=== PATIENT | female | born 1995 | race Caucasian/White ===

== ENCOUNTER 2023-05-30 16:59 | Inpatient (IN) | payer OTHER ==
[~2023-05-30] VITALS: Ht 175.3 cm; Wt 103.9 kg
[2023-05-30 17:07] VITALS: BP_SYST 144; PULSE 108; RESP 20; TEMP 98.3; O2SAT 98
[2023-05-30 18:25] LABS: MEAN CORPUSCULAR HEMOGLOBIN 22 pg (27-31); MEAN CORPUSCULAR HGB CONC 32 % (32-36); MEAN CORPUSCULAR VOLUME 70 fL (79.0-98.0); PLATELET COUNT (AUTO) 159 K/uL (130-430); RED BLOOD CELL COUNT(AUTO) 3.13 MIL/uL (4.2-6.2); RED CELL DISTRIBUTION WIDTH 20.1 % (9.0-15.0)
[2023-05-30 18:27] LABS: ALBUMIN 2.3 g/dL (3.4-4.8); CALCIUM 7.9 mg/dL (8.4-11.0); CREATININE 1.09 mg/dL (0.55-1.30); POTASSIUM 3.9 mmol/L (3.5-5.1); TOTAL BILIRUBIN 0.6 mg/dL (0.0-1.0); TOTAL PROTEIN, SERUM 7.6 g/dL (6.4-8.3)
[2023-05-30 18:31] LABS: BILIRUBIN,URINE 2+ (NEGATIVE); BLOOD, URINE 1+ (NEGATIVE); CLARITY/URINE CLOUDY (CLEAR); COLOR,URINE YELLOW (YELLOW); GLUCOSE,URINE NEGATIVE (NEGATIVE); KETONES,URINE TRACE (NEGATIVE); LEUKOCYTE ESTERASE ,URINE TRACE (NEGATIVE); NITRITE, URINE NEGATIVE (NEGATIVE); PH,URINE 6.5 (5.0-8.0); PROTEIN URINE 2+ (NEGATIVE); UROBILINOGEN,URINE 0.2 (0.2-1.0)
[2023-05-30 18:37] LABS: WHITE BLOOD COUNT (AUTO) 1.6 K/uL (4.8-10.8)
[2023-05-30 18:38] LABS: HEMATOCRIT 21.7 % (36-48); HEMOGLOBIN 6.9 g/dL (12.0-16.0)
[2023-05-30 19:18] LABS: BACTERIA,URINE MODERATE /HPF (None Seen); RBC,URINE 0-3 /HPF (0-3)
[2023-05-30 19:19] LABS: COARSE GRANULAR CASTS,URINE 0-10 /LPF (None Seen); FINE GRANULAR CASTS,URINE 0-10 /LPF (None Seen); MUCUS,URINE 2+ /LPF (None Seen); YEAST,URINE Few /HPF (None Seen)
[2023-05-30 19:40] LABS: BAND % (MANUAL) 6 % (0-6); LYMPHOCYTES % (MANUAL) 29 % (20-46); TOTAL IRON BIND. CAPACITY 187 ug/dL (250-450)
[2023-05-30 19:41] LABS: ANISOCYTOSIS 2+; BASOPHILS % (MANUAL) 0 % (0-2); EOSINOPHILS % (MANUAL) 1 % (0-7); HYPOCHROMASIA 2+; MONOCYTES % (MANUAL) 7 % (0-11); OVALOCYTES MODERATE; PLATELET ESTIMATE ADEQUATE (ADEQUATE); TARGET CELLS MODERATE; TEAR DROP CELLS FEW
[2023-05-30 21:07] LABS: PROTHROMBIN TIME 10.7 SECS (9.5-12.5)
[2023-05-30] MEDS ORDERED: ERGO1250 PO (21:41)
[2023-05-30] MEDS ORDERED: GABA-529 PO (21:41)
[2023-05-30] MEDS ORDERED: METF-379 PO (21:41)
[2023-05-30] MEDS ORDERED: DOXY-160 PO (21:41)
[2023-05-30] MEDS ORDERED: TEMAZEPAM 15 MG CAPSULE PO PRN (22:00)
[2023-05-30] MEDS ORDERED: DEXTROSE 50% JECT 50 ML DISP.SYRIN IVP PRN (22:00)
[2023-05-30] MEDS ORDERED: DIPHENHYDRAMINE INJ 50 MG/ML VIAL IVP PRN (22:00)
[2023-05-30] MEDS ORDERED: ACETAMINOPHEN 325 MG TABLET PO PRN (22:00)
[2023-05-30 23:49] VITALS: BP_SYST 122; PULSE 100; RESP 16; TEMP 99
[2023-05-31 00:45] VITALS: BP_SYST 123; PULSE 80; RESP 14; TEMP 98.2; O2SAT 98
[2023-05-31] MEDS: NACL 0.9% 1,000 ML IV SCH (01:57)
[2023-05-31 06:03] LABS: BASOPHILS % (AUTO) 0.2 % (0.0-2.0); EOSINOPHILS % (AUTO) 0.9 % (0.0-4.0); HEMATOCRIT 22.8 % (36-48); HEMOGLOBIN 7.4 g/dL (12.0-16.0); LYMPHOCYTES # (AUTO) 0.4 K/uL (1.0-5.5); LYMPHOCYTES % (AUTO) 32.3 % (20.5-51.5); MEAN CORPUSCULAR HEMOGLOBIN 23 pg (27-31); MEAN CORPUSCULAR HGB CONC 32 % (32-36); MEAN CORPUSCULAR VOLUME 71 fL (79.0-98.0); MONOCYTES # (AUTO) 0.1 K/uL (0.0-1.0); MONOCYTES % (AUTO) 4.5 % (1.7-9.3); NEUTROPHILS % (AUTO) 62.1 % (40.0-70.0); PLATELET COUNT (AUTO) 148 K/uL (130-430); RED BLOOD CELL COUNT(AUTO) 3.21 MIL/uL (4.2-6.2); RED CELL DISTRIBUTION WIDTH 20.5 % (9.0-15.0)
[2023-05-31 06:45] LABS: CALCIUM 7.7 mg/dL (8.4-11.0); CREATININE 0.85 mg/dL (0.55-1.30); FREE T4 (FREE THYROXINE) 1.3 ng/dL (0.6-1.6); POTASSIUM 3.8 mmol/L (3.5-5.1); THYROID STIMULATING HORMONE 2.18 uIu/mL (0.34-4.82); TOTAL BILIRUBIN 0.6 mg/dL (0.0-1.0); TOTAL PROTEIN, SERUM 6.5 g/dL (6.4-8.3)
[2023-05-31 07:47] LABS: NEUTROPHILS # (AUTO) 0.8 K/uL (1.8-7.7); WHITE BLOOD COUNT (AUTO) 1.3 K/uL (4.8-10.8)
[2023-05-31 08:00] VITALS: BP_SYST 140; PULSE 90; RESP 1; TEMP 97; O2SAT 96; O2SAT 97
[2023-05-31 11:23] VITALS: BP_SYST 127; PULSE 89; RESP 15; TEMP 97.3; O2SAT 96
[2023-05-31] MEDS ORDERED: ACETAMINOPHEN 325 MG TABLET PO PRN (15:00)
[2023-05-31] MEDS ORDERED: ALBUTEROL SULFATE 0.083% 2.5 MG/3 ML VIAL.NEB INH PRN (15:00)
[2023-05-31] MEDS ORDERED: MORPHINE 2 MG/ML INJ. SYRINGE IVP PRN (15:00)
[2023-05-31] MEDS ORDERED: ONDANSETRON HCL 4 MG/2 ML VIAL IVP PRN (15:00)
[2023-05-31] MEDS ORDERED: NALOXONE HCL 0.4 MG/ML AMP (NARCAN) IVP PRN (15:00)
[2023-05-31] MEDS ORDERED: HYDROcodone/ACETAMIN 10-325 MG TAB PO PRN (15:00)
[2023-05-31 15:14] VITALS: BP_SYST 127; PULSE 105; RESP 16; TEMP 98.7; O2SAT 95
[2023-05-31 16:17] VITALS: PULSE 105; O2SAT 95
[2023-05-31 20:00] VITALS: BP_SYST 117; PULSE 107; RESP 18; TEMP 99.6; O2SAT 94
[2023-05-31] MEDS: HYDROcodone/ACETAMIN 5-325 MG TAB (NORCO/ VICODIN) PO PRN (23:49)
[2023-06-01] VITALS: BP_SYST 142; PULSE 104; RESP 18; TEMP 99; O2SAT 96
[2023-06-01 05:59] LABS: BASOPHILS % (AUTO) 0.8 % (0.0-2.0); EOSINOPHILS % (AUTO) 2.3 % (0.0-4.0); HEMOGLOBIN 7.5 g/dL (12.0-16.0); LYMPHOCYTES # (AUTO) 0.4 K/uL (1.0-5.5); LYMPHOCYTES % (AUTO) 37.8 % (20.5-51.5); MEAN CORPUSCULAR HEMOGLOBIN 22 pg (27-31); MEAN CORPUSCULAR HGB CONC 31 % (32-36); MEAN CORPUSCULAR VOLUME 72 fL (79.0-98.0); MONOCYTES # (AUTO) 0.1 K/uL (0.0-1.0); MONOCYTES % (AUTO) 6.1 % (1.7-9.3); PLATELET COUNT (AUTO) 151 K/uL (130-430); RED BLOOD CELL COUNT(AUTO) 3.33 MIL/uL (4.2-6.2); RED CELL DISTRIBUTION WIDTH 20.7 % (9.0-15.0); RETICULOCYTE COUNT 1.3 % (0.5-1.5)
[2023-06-01] MEDS: INSULIN REGULAR, HUMAN 100 UNITS/ML, 3 ML VIAL (humuLIN R) SUBCUT PRN (06:10)
[2023-06-01 06:31] LABS: TOTAL IRON BIND. CAPACITY 185 ug/dL (250-450)
[2023-06-01 06:45] LABS: CALCIUM 7.1 mg/dL (8.4-11.0); CREATININE 0.83 mg/dL (0.55-1.30); POTASSIUM 3.7 mmol/L (3.5-5.1); TOTAL BILIRUBIN 0.6 mg/dL (0.0-1.0); TOTAL PROTEIN, SERUM 6.5 g/dL (6.4-8.3)
[2023-06-01 08:26] LABS: NEUTROPHILS # (AUTO) 0.6 K/uL (1.8-7.7); WHITE BLOOD COUNT (AUTO) 1.1 K/uL (4.8-10.8)
[2023-06-01 08:54] VITALS: BP_SYST 132; PULSE 96; RESP 18; TEMP 98.6; O2SAT 97
[2023-06-01 12:00] VITALS: BP_SYST 135; PULSE 105; RESP 20; TEMP 99; O2SAT 98
[2023-06-01] MEDS: FOLIC ACID 1 MG TABLET PO ONE (12:14)
[2023-06-01] MEDS: SOD FERRIC GLUC COMPLEX/SUC 125 MG in NS 100 ML IV SCH (12:15)
[2023-06-01 16:53] VITALS: BP_SYST 129; PULSE 89; RESP 20; TEMP 98.1; O2SAT 99
[2023-06-01] MEDS: LIDOCAINE PATCH 5% 1 EA TP ONE (17:52)
[2023-06-01] MEDS: BACLOFEN 10 MG TABLET PO ONE (17:52)
[2023-06-01 20:27] VITALS: BP_SYST 126; PULSE 90; RESP 18; TEMP 98; O2SAT 98
[2023-06-01] MEDS: BACLOFEN 10 MG TABLET PO SCH (21:47)
[2023-06-02 00:09] VITALS: BP_SYST 130; PULSE 87; RESP 19; TEMP 97.9; O2SAT 97
[2023-06-02 05:53] LABS: HEMATOCRIT 23.4 % (36-48); HEMOGLOBIN 7.5 g/dL (12.0-16.0); MEAN CORPUSCULAR HEMOGLOBIN 23 pg (27-31); MEAN CORPUSCULAR HGB CONC 32 % (32-36); MEAN CORPUSCULAR VOLUME 71 fL (79.0-98.0); PLATELET COUNT (AUTO) 144 K/uL (130-430); RED BLOOD CELL COUNT(AUTO) 3.28 MIL/uL (4.2-6.2); RED CELL DISTRIBUTION WIDTH 21.2 % (9.0-15.0)
[2023-06-02 06:17] LABS: ALBUMIN 2.1 g/dL (3.4-4.8); CALCIUM 7.7 mg/dL (8.4-11.0); CREATININE 0.81 mg/dL (0.55-1.30); POTASSIUM 3.9 mmol/L (3.5-5.1); TOTAL BILIRUBIN 0.5 mg/dL (0.0-1.0); TOTAL PROTEIN, SERUM 6.7 g/dL (6.4-8.3)
[2023-06-02 07:00] VITALS: O2SAT 97
[2023-06-02 08:00] VITALS: BP_SYST 140; PULSE 95; RESP 18; TEMP 99.2; O2SAT 97
[2023-06-02] MEDS: FOLIC ACID 1 MG TABLET PO SCH (08:28)
[2023-06-02] MEDS: LIDOCAINE PATCH 5% 1 EA TP SCH (08:28)
[2023-06-02 09:00] LABS: WHITE BLOOD COUNT (AUTO) 1.1 K/uL (4.8-10.8)
[2023-06-02 10:53] VITALS: BP_SYST 132; PULSE 116; RESP 16; TEMP 98.8; O2SAT 95
[2023-06-02 10:54] LABS: ANISOCYTOSIS 2+; BAND % (MANUAL) 4 % (0-6); BASOPHILS % (MANUAL) 0 % (0-2); EOSINOPHILS % (MANUAL) 2 % (0-7); HYPOCHROMASIA SLIGHT; LYMPHOCYTES % (MANUAL) 29 % (20-46); MONOCYTES % (MANUAL) 8 % (0-11); PLATELET ESTIMATE ADEQUATE (ADEQUATE); POLYCHROMASIA SLIGHT
[2023-06-02 10:55] LABS: OVALOCYTES FEW; TARGET CELLS FEW
[2023-06-02] MEDS: predniSONE 20 MG TABLET PO SCH (12:04)
[2023-06-02] MEDS ORDERED: METF-379 PO (14:24)
[2023-06-02] MEDS ORDERED: PRED20TA PO (14:24)
[2023-06-02 15:12] VITALS: BP_SYST 132; PULSE 85; RESP 18; TEMP 98.7; O2SAT 97
[2023-06-06 13:06] LABS: ATYPICAL pANCA <1:20 titer (Neg:<1:20); CYTOPLASMIC (C-ANCA) <1:20 titer (Neg:<1:20); CYTOPLASMIC (P-ANCA) <1:20 titer (Neg:<1:20)
[2023-06-12 11:32] LABS: EBV AB VCA, IgG >600; EBV AB VCA, IgM <36
== END 2023-06-02 17:10 | disposition home or self-care (01) | DRG 811 ==
LOC: SED 16:59 → SMU 19:20
PROVIDERS: ADMIT Family Medicine; ATTEND Family Medicine
PROC: 30233N1 Transfusion of Nonautologous Red Blood Cells into Peripheral Vein, Percutaneous Approach (ICD-10-PCS; principal; 2023-05-30)
DX: D64.9 Anemia, unspecified (principal); E43 Unspecified severe protein-calorie malnutrition; D70.8 Other neutropenia; E11.9 Type 2 diabetes mellitus without complications; E66.9 Obesity, unspecified; E88.09 Other disorders of plasma-protein metabolism, not elsewhere classified; E83.51 Hypocalcemia; T36.4X5A Adverse effect of tetracyclines, initial encounter; M25.562 Pain in left knee; M25.561 Pain in right knee; Z79.899 Other long term (current) drug therapy; Z68.33 Body mass index [BMI] 33.0-33.9, adult
CPT/HCPCS: 36415; 71250-TC; 74160; 76700; 80053; 81000; 81001; 81015; 82272; 82948; 83037; 83540; 83550; 84439; 84443; 84702; 85007; 85025; 85027; 85044; 85610; 85730; 86256; 86592; 86665; 86886; 86900; 86901; 86920; 87086; 94760; 99285; J1815; J2916; J7512; P9021; Q9967

== ENCOUNTER 2023-06-25 11:00 | Inpatient (IN) | payer OTHER ==
[~2023-06-25] VITALS: Ht 175.3 cm; Wt 104.8 kg
[~2023-06-25 11:00] MED LIST: ERGO1250 PO; GABA-529 PO; METF-379 PO; PRED20TA PO
[2023-06-25 11:09] VITALS: BP_SYST 135; PULSE 139; RESP 20; TEMP 98.3; O2SAT 100
[2023-06-25 11:32] LABS: BASOPHILS % (AUTO) 0.4 % (0.0-2.0); EOSINOPHILS % (AUTO) 0.1 % (0.0-4.0); HEMOGLOBIN 8.1 g/dL (12.0-16.0); LYMPHOCYTES # (AUTO) 1.2 K/uL (1.0-5.5); LYMPHOCYTES % (AUTO) 27.8 % (20.5-51.5); MEAN CORPUSCULAR HEMOGLOBIN 23 pg (27-31); MEAN CORPUSCULAR HGB CONC 32 % (32-36); MEAN CORPUSCULAR VOLUME 72 fL (79.0-98.0); MONOCYTES # (AUTO) 0.2 K/uL (0.0-1.0); MONOCYTES % (AUTO) 5.8 % (1.7-9.3); NEUTROPHILS # (AUTO) 2.8 K/uL (1.8-7.7); NEUTROPHILS % (AUTO) 65.9 % (40.0-70.0); PLATELET COUNT (AUTO) 115 K/uL (130-430); RED BLOOD CELL COUNT(AUTO) 3.49 MIL/uL (4.2-6.2); RED CELL DISTRIBUTION WIDTH 23.2 % (9.0-15.0); WHITE BLOOD COUNT (AUTO) 4.3 K/uL (4.8-10.8)
[2023-06-25 11:45] LABS: PROTHROMBIN TIME 10.8 SECS (9.5-12.5)
[2023-06-25] MEDS ORDERED: PIPERACILLIN/TAZOBACTAM 3.375 GM/VIAL (ZOSYN) IV ONE (12:01)
[2023-06-25 12:12] LABS: ANION GAP 13 (5-15); CALCIUM 8.3 mg/dL (8.4-11.0); CARBON DIOXIDE 21 mmol/L (23-29); CHLORIDE 96 mmol/L (98-107); CREATININE 1.98 mg/dL (0.55-1.30); GFR AFRICAN AMERICAN 39 mL/min (>90); GLUCOSE 133 mg/dL (74-106); POTASSIUM 4.8 mmol/L (3.5-5.1); SODIUM SERUM 130 mmol/L (136-145); UREA NITROGEN, BLOOD 43 mg/dL (8-21)
[2023-06-25 12:18] LABS: GFR NON AFRICAN-AMERICAN 32 mL/min (>90)
[2023-06-25] MEDS: PIPERACILLIN/TAZO 3.375 GM in NS 50 ML IV ONE (12:29)
[2023-06-25] MEDS: NITROGLYCERIN 1 INCH (GM) OINT. TP ONE (13:00)
[2023-06-25] MEDS: NS 500 ML IV ONE (13:00)
[2023-06-25] MEDS: ASPIRIN 81 MG TAB.CHEW PO ONE (13:00)
[2023-06-25] MEDS ORDERED: ASPIRIN 81 MG TAB.CHEW ONE (13:05)
[2023-06-25] MEDS ORDERED: NALOXONE HCL 0.4 MG/ML AMP (NARCAN) IVP PRN ×2 (20:30)
[2023-06-25 21:00] VITALS: BP_SYST 125; PULSE 109; RESP 18; TEMP 99.5
[2023-06-25] MEDS: HYDROcodone/ACETAMIN 10-325 MG TAB PO PRN (21:40)
[2023-06-25] MEDS ORDERED: ONDANSETRON HCL 4 MG/2 ML VIAL IVP PRN (23:00)
[2023-06-25] MEDS: PIPERACILLIN/TAZOBACTAM 3.375 GM/VIAL (ZOSYN) IV ONE (23:40)
[2023-06-26] VITALS (9 sets, daily range): BP systolic 121–148; PULSE 97–122; RESP 18; TEMP 97.8–98.8; O2SAT 97–100
[2023-06-26] MEDS: PIPERACILLIN/TAZO 3.375/DEX-IS 50 ML IV SCH (00:10)
[2023-06-26 05:11] LABS: BASOPHILS % (AUTO) 0.3 % (0.0-2.0); EOSINOPHILS % (AUTO) 0.7 % (0.0-4.0); HEMATOCRIT 22.2 % (36-48); HEMOGLOBIN 7.2 g/dL (12.0-16.0); LYMPHOCYTES # (AUTO) 0.3 K/uL (1.0-5.5); LYMPHOCYTES % (AUTO) 8.7 % (20.5-51.5); MEAN CORPUSCULAR HEMOGLOBIN 23 pg (27-31); MEAN CORPUSCULAR HGB CONC 32 % (32-36); MEAN CORPUSCULAR VOLUME 72 fL (79.0-98.0); MONOCYTES # (AUTO) 0.3 K/uL (0.0-1.0); MONOCYTES % (AUTO) 8.1 % (1.7-9.3); NEUTROPHILS % (AUTO) 82.2 % (40.0-70.0); PLATELET COUNT (AUTO) 123 K/uL (130-430); RED BLOOD CELL COUNT(AUTO) 3.08 MIL/uL (4.2-6.2); RED CELL DISTRIBUTION WIDTH 23.3 % (9.0-15.0); WHITE BLOOD COUNT (AUTO) 3.7 K/uL (4.8-10.8)
[2023-06-26 05:25] LABS: ALBUMIN 1.8 g/dL (3.4-4.8); CALCIUM 7.9 mg/dL (8.4-11.0); CREATININE 1.61 mg/dL (0.55-1.30); PHOSPHORUS 3.4 mg/dL (2.7-4.5); POTASSIUM 4.2 mmol/L (3.5-5.1); TOTAL BILIRUBIN 1.3 mg/dL (0.0-1.0); TOTAL PROTEIN, SERUM 6.3 g/dL (6.4-8.3)
[2023-06-26] MEDS: HYDROcodone/ACETAMIN 5-325 MG TAB (NORCO/ VICODIN) PO PRN (08:05)
[2023-06-26] MEDS: ALBUTEROL SULFATE 0.083% 2.5 MG/3 ML VIAL.NEB INH PRN (10:46)
[2023-06-26] MEDS: IPRATROPIUM BROM 0.5 MG/2.5 ML VIAL.NEB (ATROVENT) INH PRN (10:47)
[2023-06-26] MEDS: METOPROLOL TARTRATE 25 MG TABLET PO ONE (11:01)
[2023-06-26 12:35] LABS: INFLUENZA TYPE A Negative (NEGATIVE); INFLUENZA TYPE B NEGATIVE (NEGATIVE)
[2023-06-26] MEDS: METOPROLOL TARTRATE 25 MG TABLET PO SCH (20:55)
[2023-06-26] MEDS: LORazepam 2 MG/ML VIAL IVP PRN (23:10)
[2023-06-27] VITALS: BP_SYST 139; PULSE 102; RESP 18; TEMP 96; O2SAT 96
[2023-06-27 04:00] VITALS: BP_SYST 137; PULSE 102; RESP 18; TEMP 97.2; O2SAT 97
[2023-06-27 06:15] LABS: BASOPHILS % (AUTO) 0.3 % (0.0-2.0); EOSINOPHILS % (AUTO) 0.3 % (0.0-4.0); HEMATOCRIT 23.5 % (36-48); HEMOGLOBIN 7.4 g/dL (12.0-16.0); LYMPHOCYTES # (AUTO) 0.2 K/uL (1.0-5.5); LYMPHOCYTES % (AUTO) 4.2 % (20.5-51.5); MEAN CORPUSCULAR HEMOGLOBIN 23 pg (27-31); MEAN CORPUSCULAR HGB CONC 32 % (32-36); MEAN CORPUSCULAR VOLUME 73 fL (79.0-98.0); MONOCYTES # (AUTO) 0.6 K/uL (0.0-1.0); MONOCYTES % (AUTO) 10.6 % (1.7-9.3); NEUTROPHILS # (AUTO) 4.5 K/uL (1.8-7.7); NEUTROPHILS % (AUTO) 84.6 % (40.0-70.0); PLATELET COUNT (AUTO) 154 K/uL (130-430); RED BLOOD CELL COUNT(AUTO) 3.23 MIL/uL (4.2-6.2); RED CELL DISTRIBUTION WIDTH 22.7 % (9.0-15.0)
[2023-06-27 06:21] LABS: HEMOGLOBIN A1C 8.7 % (<5.7)
[2023-06-27 06:43] LABS: ALBUMIN 1.9 g/dL (3.4-4.8); CREATININE 1.54 mg/dL (0.55-1.30); POTASSIUM 4.3 mmol/L (3.5-5.1); TOTAL PROTEIN, SERUM 6.9 g/dL (6.4-8.3)
[2023-06-27 08:00] VITALS: BP_SYST 141; PULSE 105; RESP 18; TEMP 98.2; O2SAT 98
[2023-06-27 09:00] LABS: WHITE BLOOD COUNT (AUTO) 5.3 K/uL (4.8-10.8)
[2023-06-27 11:31] VITALS: BP_SYST 124; PULSE 88; RESP 17; TEMP 97.6; O2SAT 100
[2023-06-27 14:23] LABS: BILIRUBIN,URINE NEGATIVE (NEGATIVE); BLOOD, URINE 3+ (NEGATIVE); CLARITY/URINE CLEAR (CLEAR); COLOR,URINE YELLOW (YELLOW); GLUCOSE,URINE NEGATIVE (NEGATIVE); KETONES,URINE NEGATIVE (NEGATIVE); LEUKOCYTE ESTERASE ,URINE 1+ (NEGATIVE); NITRITE, URINE NEGATIVE (NEGATIVE); PROTEIN URINE 3+ (NEGATIVE)
[2023-06-27 14:30] LABS: BARBITURATE, URINE NEGATIVE (NEG <=200); BENZODIAZEPINE, URINE NEGATIVE (NEG <=150); COCAINE, URINE POSITIVE (NEG <=150); METHAMPHETAMINES SCREEN,URINE NEGATIVE (NEG <=500); URINE AMPHETAMINE NEGATIVE (NEG <=500); URINE METHADONE NEGATIVE (NEG <=200)
[2023-06-27 14:31] LABS: CANNABINOID, URINE NEGATIVE (NEG <=50); OPIATE, URINE POSITIVE (NEG <=100); PHENCYCLIDINE SCREEN,URINE NEGATIVE (NEG <=25); UR TRICYCLIC ANTIDEPRESSANTS NEGATIVE (NEG <=300); URINE OXYCODONE SCREEN NEGATIVE (NEG <=100)
[2023-06-27 14:54] LABS: BACTERIA,URINE MANY /HPF (None Seen)
[2023-06-27 14:56] LABS: FINE GRANULAR CASTS,URINE 0-10 /LPF (None Seen)
[2023-06-27 15:00] VITALS: BP_SYST 134; PULSE 100; RESP 18; TEMP 97.1; O2SAT 100
[2023-06-27 17:07] LABS: SOURCE/TYPE ,BODY FLUID THORACENTESIS
[2023-06-27 17:08] LABS: APPEARANCE,SPUN,BODY FLUID HAZY (CLEAR); BF APPEARANCE UNSPUN HAZY (CLEAR); BODY FLUID COLOR YELLOW (LT YELLOW); BODY FLUID SOURCE/ TYPE THORACENTESIS; BODY FLUID TOTAL VOLUME 1100 mL
[2023-06-27 17:09] LABS: LYMPHOCYTES, BODY FLUID 3 %; MONOCYTES,BODY FLUID 4 %; NEUTROPHIL, BODY FLUID 93 %; RBC, BODY FLUID 120 /uL; WBC, BODY FLUID 3228 /uL
[2023-06-27 20:00] VITALS: BP_SYST 125; PULSE 114; RESP 18; TEMP 97.7; O2SAT 99
[2023-06-27] MEDS: DOXYCYCLINE HYCLATE 100 MG in D5W 100 ML IV SCH (20:57)
[2023-06-28 00:55] LABS: BODY FLUID GLUCOSE < 7 mg/dL
[2023-06-28 00:56] LABS: BODY FLUID TOTAL PROTEIN 4.8 g/dL
[2023-06-28 08:27] VITALS: BP_SYST 112; PULSE 123; RESP 19; TEMP 97.2; O2SAT 97
[2023-06-28 08:38] VITALS: O2SAT 97
[2023-06-28 09:21] LABS: TOTAL IRON BIND. CAPACITY 117 ug/dL (250-450)
[2023-06-28 10:28] LABS: BASOPHILS % (AUTO) 0.4 % (0.0-2.0); EOSINOPHILS % (AUTO) 0.3 % (0.0-4.0); HEMOGLOBIN 7.8 g/dL (12.0-16.0); LYMPHOCYTES # (AUTO) 1.4 K/uL (1.0-5.5); LYMPHOCYTES % (AUTO) 34.4 % (20.5-51.5); MEAN CORPUSCULAR HEMOGLOBIN 23 pg (27-31); MEAN CORPUSCULAR HGB CONC 31 % (32-36); MEAN CORPUSCULAR VOLUME 73 fL (79.0-98.0); MONOCYTES # (AUTO) 0.2 K/uL (0.0-1.0); MONOCYTES % (AUTO) 5.5 % (1.7-9.3); NEUTROPHILS # (AUTO) 2.5 K/uL (1.8-7.7); NEUTROPHILS % (AUTO) 59.4 % (40.0-70.0); PLATELET COUNT (AUTO) 202 K/uL (130-430); RED BLOOD CELL COUNT(AUTO) 3.43 MIL/uL (4.2-6.2); RED CELL DISTRIBUTION WIDTH 23.1 % (9.0-15.0); WHITE BLOOD COUNT (AUTO) 4.2 K/uL (4.8-10.8)
[2023-06-28 10:41] LABS: CALCIUM 8.3 mg/dL (8.4-11.0); CREATININE 2.25 mg/dL (0.55-1.30); POTASSIUM 4.9 mmol/L (3.5-5.1); TOTAL BILIRUBIN 0.9 mg/dL (0.0-1.0); TOTAL PROTEIN, SERUM 7.2 g/dL (6.4-8.3)
[2023-06-28 11:03] VITALS: BP_SYST 93; PULSE 116; RESP 18; TEMP 97.6; O2SAT 99
[2023-06-28 12:04] LABS: BODY FLUID GLUCOSE < 7 mg/dL
[2023-06-28 12:05] LABS: BODY FLUID TOTAL PROTEIN 4.8 g/dL
[2023-06-28 12:40] LABS: URINE SODIUM, RANDOM 7 mmol/L (40-220)
[2023-06-28 16:19] VITALS: BP_SYST 101; PULSE 112; RESP 17; TEMP 98.1; O2SAT 98
[2023-06-28] MEDS: NACL 0.9% 1,000 ML IV SCH (17:23)
[2023-06-28 17:54] LABS: SERUM HCG (QUALITATIVE) NEGATIVE (NEGATIVE)
[2023-06-28] MEDS: EPOETIN ALFA-EPBX 3,000 UNITS/ML VIAL SUBCUT ONE (18:08)
[2023-06-28] MEDS: FOLIC ACID 1 MG TABLET PO ONE (18:09)
[2023-06-28 20:00] VITALS: BP_SYST 117; PULSE 108; RESP 20; TEMP 97.5; O2SAT 96
[2023-06-28 20:30] VITALS: O2SAT 97
[2023-06-29 00:17] VITALS: BP_SYST 117; PULSE 117; RESP 20; TEMP 97.9; O2SAT 97
[2023-06-29 07:30] VITALS: BP_SYST 126; PULSE 100; RESP 17; TEMP 98.4; O2SAT 100
[2023-06-29 08:00] VITALS: O2SAT 98
[2023-06-29] MEDS: FOLIC ACID 1 MG TABLET PO SCH (09:20)
[2023-06-29 12:00] VITALS: BP_SYST 115; PULSE 107; RESP 18; TEMP 97.5; O2SAT 98
[2023-06-29 12:17] LABS: BASOPHILS % (AUTO) 0.8 % (0.0-2.0); EOSINOPHILS % (AUTO) 0.7 % (0.0-4.0); LYMPHOCYTES # (AUTO) 0.4 K/uL (1.0-5.5); LYMPHOCYTES % (AUTO) 10.4 % (20.5-51.5); MEAN CORPUSCULAR HEMOGLOBIN 23 pg (27-31); MEAN CORPUSCULAR HGB CONC 33 % (32-36); MEAN CORPUSCULAR VOLUME 71 fL (79.0-98.0); MONOCYTES # (AUTO) 0.4 K/uL (0.0-1.0); MONOCYTES % (AUTO) 9.9 % (1.7-9.3); NEUTROPHILS # (AUTO) 2.9 K/uL (1.8-7.7); NEUTROPHILS % (AUTO) 78.2 % (40.0-70.0); PLATELET COUNT (AUTO) 181 K/uL (130-430); RED BLOOD CELL COUNT(AUTO) 2.46 MIL/uL (4.2-6.2); RED CELL DISTRIBUTION WIDTH 23.2 % (9.0-15.0); WHITE BLOOD COUNT (AUTO) 3.6 K/uL (4.8-10.8)
[2023-06-29 12:19] LABS: PROTHROMBIN TIME 10.7 SECS (9.5-12.5)
[2023-06-29 12:21] LABS: ALBUMIN 1.7 g/dL (3.4-4.8); CREATININE 3.23 mg/dL (0.55-1.30); POTASSIUM 4.6 mmol/L (3.5-5.1); TOTAL BILIRUBIN 0.8 mg/dL (0.0-1.0); TOTAL PROTEIN, SERUM 6.6 g/dL (6.4-8.3)
[2023-06-29 12:28] LABS: HEMOGLOBIN 5.7 g/dL (12.0-16.0)
[2023-06-29 12:29] LABS: HEMATOCRIT 17.5 % (36-48)
[2023-06-29 14:45] LABS: HEMATOCRIT 18.6 % (36-48); HEMOGLOBIN 6.1 g/dL (12.0-16.0)
[2023-06-29] MEDS: LORATADINE 10 MG TABLET PO ONE (16:35)
[2023-06-29 17:06] LABS: THYROID PEROXIDASE (TPO) AB <9 IU/mL (0-34)
[2023-06-29] MEDS ORDERED: GLUCOSE (DEXTROSE) ORAL GEL -Adults PO PRN (17:45)
[2023-06-29] MEDS ORDERED: DEXTROSE 50% JECT 50 ML DISP.SYRIN IVP PRN (17:45)
[2023-06-29 18:05] VITALS: BP_SYST 122; PULSE 94; RESP 16; TEMP 97.4; O2SAT 100
[2023-06-29 20:00] VITALS: BP_SYST 121; PULSE 98; RESP 16; TEMP 98; O2SAT 100; O2SAT 98
[2023-06-30 04:00] VITALS: BP_SYST 124; PULSE 112; RESP 20; TEMP 98; O2SAT 100
[2023-06-30 08:07] LABS: COMPLEMENT C4, SERUM 3 mg/dL (12-38)
[2023-06-30 08:52] LABS: BASOPHILS % (AUTO) 0.5 % (0.0-2.0); EOSINOPHILS % (AUTO) 0.8 % (0.0-4.0); HEMATOCRIT 26.1 % (36-48); HEMOGLOBIN 8.6 g/dL (12.0-16.0); LYMPHOCYTES # (AUTO) 0.7 K/uL (1.0-5.5); LYMPHOCYTES % (AUTO) 14.7 % (20.5-51.5); MEAN CORPUSCULAR HEMOGLOBIN 25 pg (27-31); MEAN CORPUSCULAR HGB CONC 33 % (32-36); MEAN CORPUSCULAR VOLUME 75 fL (79.0-98.0); MONOCYTES # (AUTO) 0.2 K/uL (0.0-1.0); MONOCYTES % (AUTO) 4.6 % (1.7-9.3); NEUTROPHILS # (AUTO) 3.6 K/uL (1.8-7.7); NEUTROPHILS % (AUTO) 79.4 % (40.0-70.0); PLATELET COUNT (AUTO) 187 K/uL (130-430); RED BLOOD CELL COUNT(AUTO) 3.49 MIL/uL (4.2-6.2); RED CELL DISTRIBUTION WIDTH 22.4 % (9.0-15.0); WHITE BLOOD COUNT (AUTO) 4.6 K/uL (4.8-10.8)
[2023-06-30 09:43] LABS: ALBUMIN 1.8 g/dL (3.4-4.8); CALCIUM 7.4 mg/dL (8.4-11.0); CREATININE 3.15 mg/dL (0.55-1.30); POTASSIUM 4.4 mmol/L (3.5-5.1); TOTAL BILIRUBIN 0.8 mg/dL (0.0-1.0); TOTAL PROTEIN, SERUM 6.9 g/dL (6.4-8.3)
[2023-06-30] MEDS ORDERED: LIDOCAINE 1%, 20 ML MDV 20 ML ONE (09:47)
[2023-06-30] MEDS: fentaNYL CITRATE/PF 100 MCG/2 ML AMP ONE ×2 (10:10→11:21)
[2023-06-30] MEDS: MIDAZOLAM HCL 5 MG/5 ML VIAL ONE (10:10)
[2023-06-30 12:00] VITALS: BP_SYST 126; PULSE 111; RESP 18; TEMP 98.1; O2SAT 98
[2023-06-30 13:07] LABS: ANTI-DNA(DS) AB, QN >300 IU/mL (0-9); ANTI-NUCLEAR AB DIRECT Positive (Negative); ANTISCLERODERMA-70 AB 0.3 AI (0.0-0.9); SMITH ABS >8.0 AI (0.0-0.9)
[2023-06-30 16:00] VITALS: BP_SYST 123; PULSE 101; RESP 18; TEMP 98.1; O2SAT 97
[2023-06-30] MEDS: EPOETIN ALFA-EPBX 3,000 UNITS/ML VIAL SUBCUT SCH (17:46)
[2023-06-30 20:30] VITALS: BP_SYST 129; PULSE 100; RESP 20; TEMP 98.2; O2SAT 99
[2023-07-01 00:11] VITALS: BP_SYST 124; PULSE 109; RESP 19; TEMP 97.7; O2SAT 100
[2023-07-01 06:43] LABS: ALBUMIN 1.6 g/dL (3.4-4.8); CALCIUM 7.9 mg/dL (8.4-11.0); CREATININE 2.94 mg/dL (0.55-1.30); POTASSIUM 4.1 mmol/L (3.5-5.1); TOTAL BILIRUBIN 0.5 mg/dL (0.0-1.0); TOTAL PROTEIN, SERUM 6.5 g/dL (6.4-8.3)
[2023-07-01 06:48] LABS: BASOPHILS % (AUTO) 0.8 % (0.0-2.0); EOSINOPHILS # (AUTO) 0.1 K/uL (0.0-0.4); EOSINOPHILS % (AUTO) 1.7 % (0.0-4.0); HEMATOCRIT 28.2 % (36-48); HEMOGLOBIN 9.2 g/dL (12.0-16.0); LYMPHOCYTES # (AUTO) 0.8 K/uL (1.0-5.5); LYMPHOCYTES % (AUTO) 19.5 % (20.5-51.5); MEAN CORPUSCULAR HEMOGLOBIN 25 pg (27-31); MEAN CORPUSCULAR HGB CONC 33 % (32-36); MEAN CORPUSCULAR VOLUME 75 fL (79.0-98.0); MONOCYTES # (AUTO) 0.2 K/uL (0.0-1.0); MONOCYTES % (AUTO) 5.4 % (1.7-9.3); NEUTROPHILS # (AUTO) 3.1 K/uL (1.8-7.7); NEUTROPHILS % (AUTO) 72.6 % (40.0-70.0); PLATELET COUNT (AUTO) 176 K/uL (130-430); RED BLOOD CELL COUNT(AUTO) 3.75 MIL/uL (4.2-6.2); RED CELL DISTRIBUTION WIDTH 22.4 % (9.0-15.0); WHITE BLOOD COUNT (AUTO) 4.3 K/uL (4.8-10.8)
[2023-07-01 09:00] VITALS: O2SAT 96
[2023-07-01 12:10] VITALS: BP_SYST 126; PULSE 102; RESP 20; TEMP 97.9; O2SAT 97
[2023-07-01 16:06] VITALS: BP_SYST 125; PULSE 103; RESP 19; TEMP 97.8; O2SAT 98
[2023-07-01 20:00] VITALS: BP_SYST 126; PULSE 101; RESP 18; TEMP 97.5; O2SAT 96; O2SAT 98
[2023-07-01] MEDS: INSULIN REGULAR, HUMAN 100 UNITS/ML, 3 ML VIAL (humuLIN R) SUBCUT PRN (22:42)
[2023-07-02 01:17] VITALS: BP_SYST 142; PULSE 114; RESP 16; TEMP 97.5; O2SAT 99
[2023-07-02 06:41] LABS: BASOPHILS % (AUTO) 0.8 % (0.0-2.0); EOSINOPHILS # (AUTO) 0.1 K/uL (0.0-0.4); EOSINOPHILS % (AUTO) 2.6 % (0.0-4.0); HEMOGLOBIN 8.5 g/dL (12.0-16.0); LYMPHOCYTES # (AUTO) 0.5 K/uL (1.0-5.5); LYMPHOCYTES % (AUTO) 14.5 % (20.5-51.5); MEAN CORPUSCULAR HEMOGLOBIN 25 pg (27-31); MEAN CORPUSCULAR HGB CONC 33 % (32-36); MEAN CORPUSCULAR VOLUME 77 fL (79.0-98.0); MONOCYTES # (AUTO) 0.2 K/uL (0.0-1.0); MONOCYTES % (AUTO) 4.7 % (1.7-9.3); NEUTROPHILS # (AUTO) 2.7 K/uL (1.8-7.7); NEUTROPHILS % (AUTO) 77.4 % (40.0-70.0); PLATELET COUNT (AUTO) 129 K/uL (130-430); RED BLOOD CELL COUNT(AUTO) 3.39 MIL/uL (4.2-6.2); WHITE BLOOD COUNT (AUTO) 3.5 K/uL (4.8-10.8)
[2023-07-02 07:26] LABS: ALBUMIN 1.3 g/dL (3.4-4.8); CALCIUM 7.2 mg/dL (8.4-11.0); CREATININE 2.45 mg/dL (0.55-1.30); POTASSIUM 3.4 mmol/L (3.5-5.1); TOTAL BILIRUBIN 0.4 mg/dL (0.0-1.0); TOTAL PROTEIN, SERUM 5.6 g/dL (6.4-8.3)
[2023-07-02 08:25] VITALS: O2SAT 100
[2023-07-02 08:54] VITALS: BP_SYST 137; PULSE 107; RESP 18; TEMP 97.9; O2SAT 100
[2023-07-02] MEDS: POTASSIUM CHLORIDE 10 MEQ TABLET.ER PO ONE (09:45)
[2023-07-02 12:41] VITALS: BP_SYST 138; PULSE 110; RESP 17; TEMP 97.7; O2SAT 97
[2023-07-02 16:18] VITALS: BP_SYST 136; PULSE 108; RESP 18; TEMP 97.8; O2SAT 99
[2023-07-02 20:00] VITALS: BP_SYST 132; PULSE 102; RESP 16; TEMP 98.1; O2SAT 95; O2SAT 96
[2023-07-03 01:00] VITALS: BP_SYST 137; PULSE 104; RESP 18; TEMP 97.5; O2SAT 96
[2023-07-03 05:02] LABS: INR 1.1 (0.8-1.2)
[2023-07-03 05:19] LABS: ALBUMIN 1.3 g/dL (3.4-4.8); CREATININE 1.87 mg/dL (0.55-1.30); POTASSIUM 3.7 mmol/L (3.5-5.1); TOTAL BILIRUBIN 0.5 mg/dL (0.0-1.0)
[2023-07-03 05:26] LABS: BASOPHILS % (AUTO) 0.7 % (0.0-2.0); EOSINOPHILS # (AUTO) 0.1 K/uL (0.0-0.4); EOSINOPHILS % (AUTO) 3.4 % (0.0-4.0); HEMATOCRIT 26.7 % (36-48); HEMOGLOBIN 8.6 g/dL (12.0-16.0); LYMPHOCYTES # (AUTO) 0.4 K/uL (1.0-5.5); LYMPHOCYTES % (AUTO) 12.5 % (20.5-51.5); MEAN CORPUSCULAR HEMOGLOBIN 25 pg (27-31); MEAN CORPUSCULAR HGB CONC 32 % (32-36); MEAN CORPUSCULAR VOLUME 77 fL (79.0-98.0); MONOCYTES # (AUTO) 0.2 K/uL (0.0-1.0); MONOCYTES % (AUTO) 5.9 % (1.7-9.3); NEUTROPHILS # (AUTO) 2.5 K/uL (1.8-7.7); NEUTROPHILS % (AUTO) 77.5 % (40.0-70.0); PLATELET COUNT (AUTO) 109 K/uL (130-430); RED BLOOD CELL COUNT(AUTO) 3.48 MIL/uL (4.2-6.2); RED CELL DISTRIBUTION WIDTH 22.6 % (9.0-15.0); WHITE BLOOD COUNT (AUTO) 3.2 K/uL (4.8-10.8)
[2023-07-03 08:00] VITALS: O2SAT 97
[2023-07-03 08:32] VITALS: BP_SYST 122; PULSE 118; RESP 18; TEMP 98.8; O2SAT 97
[2023-07-03 11:48] VITALS: BP_SYST 135; PULSE 110; RESP 17; TEMP 98; O2SAT 98
[2023-07-03] MEDS ORDERED: INSULIN Lispro 100 UNITS/ML, 3 ML VIAL (humaLOG) SUBCUT PRN (15:45)
[2023-07-03 16:47] VITALS: BP_SYST 127; PULSE 103; RESP 17; TEMP 98.4; O2SAT 97
[2023-07-03] MEDS ORDERED: methylPREDNISolone SOD SUCC/PF 62.5 MG/ML VIAL IVP SCH (18:15)
[2023-07-03 20:00] VITALS: BP_SYST 121; PULSE 122; RESP 18; TEMP 97.8; O2SAT 96
[2023-07-04 07:58] VITALS: BP_SYST 130; PULSE 78; RESP 18; TEMP 98.1; O2SAT 98
[2023-07-04] MEDS ORDERED: METHYLPREDNISOLONE SOD SUCC IV SCH (09:00)
[2023-07-04] MEDS ORDERED: METHYLPREDNISOLONE SOD SUCC 40 MG/ML VIAL IVP SCH (09:00)
[2023-07-04] MEDS ORDERED: NS IV SCH (09:00)
[2023-07-04 09:15] VITALS: O2SAT 98
[2023-07-04] MEDS: MIDAZOLAM HCL 5 MG/5 ML VIAL ONE (09:45)
[2023-07-04] MEDS: fentaNYL CITRATE/PF 100 MCG/2 ML AMP ONE (09:45)
[2023-07-04] MEDS ORDERED: LIDOCAINE 1%, 20 ML MDV 20 ML ONE (10:27)
[2023-07-04 12:49] LABS: BASOPHILS % (AUTO) 0.7 % (0.0-2.0); HEMATOCRIT 27.1 % (36-48); HEMOGLOBIN 8.8 g/dL (12.0-16.0); LYMPHOCYTES # (AUTO) 0.4 K/uL (1.0-5.5); LYMPHOCYTES % (AUTO) 15.2 % (20.5-51.5); MEAN CORPUSCULAR HEMOGLOBIN 25 pg (27-31); MEAN CORPUSCULAR HGB CONC 32 % (32-36); MEAN CORPUSCULAR VOLUME 77 fL (79.0-98.0); MONOCYTES # (AUTO) 0.1 K/uL (0.0-1.0); NEUTROPHILS # (AUTO) 2.2 K/uL (1.8-7.7); NEUTROPHILS % (AUTO) 81.1 % (40.0-70.0); PLATELET COUNT (AUTO) 94 K/uL (130-430); RED BLOOD CELL COUNT(AUTO) 3.55 MIL/uL (4.2-6.2); RED CELL DISTRIBUTION WIDTH 22.8 % (9.0-15.0)
[2023-07-04 12:52] LABS: WHITE BLOOD COUNT (AUTO) 2.7 K/uL (4.8-10.8)
[2023-07-04 13:29] VITALS: BP_SYST 142; PULSE 82; RESP 18; TEMP 97.8; O2SAT 97
[2023-07-04 14:25] VITALS: BP_SYST 130; PULSE 89; RESP 18; TEMP 97.9; O2SAT 99
[2023-07-04 16:34] VITALS: BP_SYST 133; PULSE 88; RESP 18; TEMP 97.9; O2SAT 99
[2023-07-04 17:27] LABS: BASOPHILS % (AUTO) 0.6 % (0.0-2.0); HEMOGLOBIN 8.5 g/dL (12.0-16.0); LYMPHOCYTES # (AUTO) 0.4 K/uL (1.0-5.5); LYMPHOCYTES % (AUTO) 13.4 % (20.5-51.5); MEAN CORPUSCULAR HEMOGLOBIN 25 pg (27-31); MEAN CORPUSCULAR HGB CONC 33 % (32-36); MEAN CORPUSCULAR VOLUME 76 fL (79.0-98.0); MONOCYTES # (AUTO) 0.1 K/uL (0.0-1.0); MONOCYTES % (AUTO) 2.7 % (1.7-9.3); NEUTROPHILS # (AUTO) 2.6 K/uL (1.8-7.7); NEUTROPHILS % (AUTO) 83.3 % (40.0-70.0); PLATELET COUNT (AUTO) 83 K/uL (130-430); RED BLOOD CELL COUNT(AUTO) 3.41 MIL/uL (4.2-6.2); RED CELL DISTRIBUTION WIDTH 22.6 % (9.0-15.0); WHITE BLOOD COUNT (AUTO) 3.2 K/uL (4.8-10.8)
[2023-07-04 20:00] VITALS: BP_SYST 146; PULSE 75; RESP 20; TEMP 96.6; O2SAT 96
[2023-07-05 01:31] VITALS: BP_SYST 146; PULSE 80; RESP 18; TEMP 97.6; O2SAT 98
[2023-07-05 04:55] LABS: BASOPHILS % (AUTO) 0.3 % (0.0-2.0); HEMATOCRIT 26.1 % (36-48); HEMOGLOBIN 8.3 g/dL (12.0-16.0); LYMPHOCYTES # (AUTO) 0.5 K/uL (1.0-5.5); LYMPHOCYTES % (AUTO) 10.6 % (20.5-51.5); MEAN CORPUSCULAR HEMOGLOBIN 24 pg (27-31); MEAN CORPUSCULAR HGB CONC 32 % (32-36); MEAN CORPUSCULAR VOLUME 77 fL (79.0-98.0); MONOCYTES # (AUTO) 0.2 K/uL (0.0-1.0); NEUTROPHILS # (AUTO) 4.4 K/uL (1.8-7.7); NEUTROPHILS % (AUTO) 86.1 % (40.0-70.0); PLATELET COUNT (AUTO) 114 K/uL (130-430); RED BLOOD CELL COUNT(AUTO) 3.41 MIL/uL (4.2-6.2); RED CELL DISTRIBUTION WIDTH 23.5 % (9.0-15.0); WHITE BLOOD COUNT (AUTO) 5.1 K/uL (4.8-10.8)
[2023-07-05 05:24] LABS: CALCIUM 7.1 mg/dL (8.4-11.0); CREATININE 1.68 mg/dL (0.55-1.30); POTASSIUM 4.2 mmol/L (3.5-5.1)
[2023-07-05 08:00] VITALS: BP_SYST 142; PULSE 86; RESP 18; TEMP 98; O2SAT 100
[2023-07-05 09:45] VITALS: BP_SYST 146; PULSE 80; O2SAT 98
[2023-07-05 10:08] VITALS: O2SAT 98
[2023-07-05 12:02] LABS: BASOPHILS % (AUTO) 0.4 % (0.0-2.0); HEMATOCRIT 26.9 % (36-48); HEMOGLOBIN 8.7 g/dL (12.0-16.0); LYMPHOCYTES # (AUTO) 0.5 K/uL (1.0-5.5); LYMPHOCYTES % (AUTO) 7.6 % (20.5-51.5); MEAN CORPUSCULAR HEMOGLOBIN 25 pg (27-31); MEAN CORPUSCULAR HGB CONC 32 % (32-36); MEAN CORPUSCULAR VOLUME 77 fL (79.0-98.0); MONOCYTES # (AUTO) 0.2 K/uL (0.0-1.0); MONOCYTES % (AUTO) 2.5 % (1.7-9.3); NEUTROPHILS # (AUTO) 5.8 K/uL (1.8-7.7); NEUTROPHILS % (AUTO) 89.5 % (40.0-70.0); PLATELET COUNT (AUTO) 131 K/uL (130-430); RED BLOOD CELL COUNT(AUTO) 3.49 MIL/uL (4.2-6.2); RED CELL DISTRIBUTION WIDTH 23.1 % (9.0-15.0); WHITE BLOOD COUNT (AUTO) 6.4 K/uL (4.8-10.8)
[2023-07-05 12:37] VITALS: BP_SYST 142; PULSE 78; RESP 19; TEMP 97.2; O2SAT 98
[2023-07-05] MEDS: INSULIN GLARGINE 100 UNITS/ML, 10 ML VIAL SUBCUT ONE (12:43)
[2023-07-05 16:41] VITALS: BP_SYST 144; PULSE 85; RESP 18; TEMP 97.8; O2SAT 99
[2023-07-05] MEDS: INSULIN REGULAR, HUMAN 100 UNITS/ML, 3 ML VIAL SUBCUT ONE (18:46)
[2023-07-05] MEDS: INSULIN NPH 100 UNITS/ML 10 ML VIAL SUBCUT ONE (18:48)
[2023-07-05] MEDS: ACETAMINOPHEN 325 MG TABLET PO PRN (21:01)
[2023-07-05] MEDS: INSULIN REGULAR, HUMAN 10 UNITS/0.1 ML, 3 ML VIAL IVP ONE (22:51)
[2023-07-06] MEDS: INSULIN GLARGINE 100 UNITS/ML, 10 ML VIAL SUBCUT SCH (00:48)
[2023-07-06] MEDS: INSULIN REGULAR, HUMAN 10 UNITS/0.1 ML, 3 ML VIAL IVP ONE ×2 (00:56→13:10)
[2023-07-06] MEDS: ALPRAZolam 0.25 MG TABLET PO PRN (01:29)
[2023-07-06] MEDS: NACL 0.9% 1,000 ML IV SCH ×2 (01:30→10:34)
[2023-07-06 02:17] VITALS: BP_SYST 141; PULSE 83; RESP 18; TEMP 98.7; O2SAT 99
[2023-07-06 07:15] VITALS: O2SAT 98
[2023-07-06 07:57] VITALS: BP_SYST 137; PULSE 70; RESP 16; TEMP 97.8; O2SAT 100
[2023-07-06] MEDS ORDERED: INSULIN GLARGINE 100 UNITS/ML, 10 ML VIAL SUBCUT SCH (10:30)
[2023-07-06] MEDS: INSULIN Lispro 100 UNITS/ML, 3 ML VIAL (humaLOG) SUBCUT ONE (10:31)
[2023-07-06] MEDS: INSULIN REGULAR, HUMAN 100 UNITS/ML, 3 ML VIAL SUBCUT SCH (10:32)
[2023-07-06] MEDS: INSULIN Lispro 100 UNITS/ML, 3 ML VIAL (humaLOG) SUBCUT SCH (10:35)
[2023-07-06] MEDS: predniSONE 20 MG TABLET PO ONE (10:41)
[2023-07-06 11:42] VITALS: BP_SYST 142; PULSE 75; RESP 17; TEMP 97.3; O2SAT 99
[2023-07-06 16:40] VITALS: BP_SYST 134; PULSE 79; RESP 16; TEMP 97.9; O2SAT 98
[2023-07-06] MEDS: PANTOPRAZOLE SODIUM 40 MG/VIAL (PROTONIX) IVP ONE (18:57)
[2023-07-06] MEDS: SUCRALFATE 1 GM/10 ML UDC GT ONE (18:58)
[2023-07-06 20:00] VITALS: BP_SYST 135; PULSE 72; RESP 16; TEMP 98.2; O2SAT 96
[2023-07-06] MEDS ORDERED: PANTOPRAZOLE SODIUM 40 MG/VIAL (PROTONIX) IVP SCH (21:00)
[2023-07-06] MEDS ORDERED: SUCRALFATE 1 GM/10 ML UDC GT SCH (21:00)
[2023-07-06] MEDS: SUCRALFATE 1 GM/10 ML UDC GT SCH (23:49)
[2023-07-07 00:25] VITALS: BP_SYST 132; PULSE 77; RESP 18; TEMP 97.8; O2SAT 100
[2023-07-07] MEDS: glipiZIDE XL 5 MG TAB ( GLUCOTROL XL) PO ONE (01:39)
[2023-07-07 04:46] LABS: BASOPHILS % (AUTO) 0.3 % (0.0-2.0); HEMATOCRIT 28.3 % (36-48); HEMOGLOBIN 8.9 g/dL (12.0-16.0); LYMPHOCYTES # (AUTO) 0.6 K/uL (1.0-5.5); LYMPHOCYTES % (AUTO) 10.5 % (20.5-51.5); MEAN CORPUSCULAR HEMOGLOBIN 24 pg (27-31); MEAN CORPUSCULAR HGB CONC 31 % (32-36); MEAN CORPUSCULAR VOLUME 78 fL (79.0-98.0); MONOCYTES # (AUTO) 0.2 K/uL (0.0-1.0); MONOCYTES % (AUTO) 3.6 % (1.7-9.3); NEUTROPHILS # (AUTO) 4.7 K/uL (1.8-7.7); NEUTROPHILS % (AUTO) 85.6 % (40.0-70.0); PLATELET COUNT (AUTO) 151 K/uL (130-430); RED BLOOD CELL COUNT(AUTO) 3.65 MIL/uL (4.2-6.2); RED CELL DISTRIBUTION WIDTH 23.7 % (9.0-15.0); WHITE BLOOD COUNT (AUTO) 5.5 K/uL (4.8-10.8)
[2023-07-07 05:14] LABS: CALCIUM 7.9 mg/dL (8.4-11.0); CREATININE 2.07 mg/dL (0.55-1.30); POTASSIUM 4.1 mmol/L (3.5-5.1)
[2023-07-07 08:00] VITALS: BP_SYST 135; PULSE 88; RESP 18; TEMP 98.6; O2SAT 100
[2023-07-07 09:14] LABS: ANTI-MITOCHONDRIAL AB QNS units (0.0-20.0); ANTI-PARIETAL CELL AB QNS Units (0.0-20.0); ANTI-SMOOTH MUSCLE AB QNS Units (0-19)
[2023-07-07] MEDS: INSULIN GLARGINE 100 UNITS/ML, 10 ML VIAL SUBCUT SCH (09:24)
[2023-07-07] MEDS: predniSONE 20 MG TABLET PO SCH (09:25)
[2023-07-07] MEDS: PANTOPRAZOLE SODIUM 40 MG TAB PO SCH (09:25)
[2023-07-07 10:49] LABS: BASOPHILS % (AUTO) 0.1 % (0.0-2.0); EOSINOPHILS % (AUTO) 0.4 % (0.0-4.0); HEMATOCRIT 28.6 % (36-48); HEMOGLOBIN 9.2 g/dL (12.0-16.0); LYMPHOCYTES # (AUTO) 0.8 K/uL (1.0-5.5); LYMPHOCYTES % (AUTO) 14.3 % (20.5-51.5); MEAN CORPUSCULAR HEMOGLOBIN 25 pg (27-31); MEAN CORPUSCULAR HGB CONC 32 % (32-36); MEAN CORPUSCULAR VOLUME 78 fL (79.0-98.0); MONOCYTES # (AUTO) 0.2 K/uL (0.0-1.0); MONOCYTES % (AUTO) 3.3 % (1.7-9.3); NEUTROPHILS # (AUTO) 4.8 K/uL (1.8-7.7); NEUTROPHILS % (AUTO) 81.9 % (40.0-70.0); PLATELET COUNT (AUTO) 150 K/uL (130-430); RED BLOOD CELL COUNT(AUTO) 3.69 MIL/uL (4.2-6.2); RED CELL DISTRIBUTION WIDTH 23.5 % (9.0-15.0); WHITE BLOOD COUNT (AUTO) 5.9 K/uL (4.8-10.8)
[2023-07-07] MEDS: INSULIN REGULAR, HUMAN 100 UNITS/ML, 3 ML VIAL SUBCUT SCH (11:49)
[2023-07-07 12:00] VITALS: BP_SYST 124; PULSE 89; RESP 18; TEMP 98; O2SAT 99
[2023-07-07 16:00] VITALS: BP_SYST 118; PULSE 88; RESP 18; TEMP 98.6; O2SAT 99
[2023-07-07] MEDS: INSULIN REGULAR, HUMAN 10 UNITS/0.1 ML, 3 ML VIAL IVP ONE ×2 (18:37→21:51)
[2023-07-07 20:00] VITALS: BP_SYST 136; PULSE 69; RESP 17; TEMP 97.7; O2SAT 100
[2023-07-07 23:27] LABS: CALCIUM 7.5 mg/dL (8.4-11.0); CREATININE 1.68 mg/dL (0.55-1.30); POTASSIUM 4.8 mmol/L (3.5-5.1)
[2023-07-08] VITALS: BP_SYST 127; PULSE 64; RESP 18; TEMP 97.5; O2SAT 100
[2023-07-08 08:52] VITALS: BP_SYST 127; PULSE 64; O2SAT 100
[2023-07-08 11:56] VITALS: BP_SYST 133; PULSE 83; RESP 18; TEMP 98.2; O2SAT 100
[2023-07-08 16:57] VITALS: BP_SYST 128; PULSE 79; RESP 18; TEMP 98; O2SAT 99
[2023-07-08] MEDS ORDERED: GLUCOSE (DEXTROSE) ORAL GEL -Adults PO PRN (19:30)
[2023-07-08] MEDS ORDERED: D5W 1,000 ML IV PRN (19:30)
[2023-07-08] MEDS ORDERED: DEXTROSE 50% JECT 50 ML DISP.SYRIN IVP PRN (19:30)
[2023-07-08 20:00] VITALS: BP_SYST 131; PULSE 75; RESP 17; TEMP 97.8; O2SAT 98
[2023-07-08] MEDS: INSULIN GLARGINE 100 UNITS/ML, 10 ML VIAL SUBCUT SCH (21:59)
[2023-07-08] MEDS: INSULIN LISPRO SLIDING SCALE 100 UNITS/ML, 3 ML VIAL (humaLOG) SUBCUT PRN (22:02)
[2023-07-09] VITALS: BP_SYST 125; PULSE 71; RESP 16; TEMP 98; O2SAT 97
[2023-07-09] MEDS: INSULIN Lispro 100 UNITS/ML, 3 ML VIAL (humaLOG) SUBCUT SCH (06:10)
[2023-07-09 06:46] LABS: CALCIUM 7.7 mg/dL (8.4-11.0); CREATININE 1.43 mg/dL (0.55-1.30); POTASSIUM 4.3 mmol/L (3.5-5.1)
[2023-07-09 08:00] VITALS: BP_SYST 136; PULSE 94; RESP 16; TEMP 98; O2SAT 100
[2023-07-09 08:56] LABS: ERYTHROCYTE SEDIMENTATION RATE 4 MM/HR (0-20)
[2023-07-09 11:16] VITALS: BP_SYST 132; PULSE 89; RESP 18; TEMP 98; O2SAT 100
[2023-07-09 13:34] LABS: HEMOGLOBIN 8.3 g/dL (12.0-16.0); MEAN CORPUSCULAR HEMOGLOBIN 25 pg (27-31); MEAN CORPUSCULAR HGB CONC 32 % (32-36); MEAN CORPUSCULAR VOLUME 77 fL (79.0-98.0); RED BLOOD CELL COUNT(AUTO) 3.38 MIL/uL (4.2-6.2); RED CELL DISTRIBUTION WIDTH 23.3 % (9.0-15.0); WHITE BLOOD COUNT (AUTO) 4.3 K/uL (4.8-10.8)
[2023-07-09 13:35] LABS: BASOPHILS % (AUTO) 0.5 % (0.0-2.0); EOSINOPHILS % (AUTO) 0.8 % (0.0-4.0); LYMPHOCYTES # (AUTO) 0.5 K/uL (1.0-5.5); MONOCYTES # (AUTO) 0.2 K/uL (0.0-1.0); MONOCYTES % (AUTO) 4.5 % (1.7-9.3); NEUTROPHILS # (AUTO) 3.6 K/uL (1.8-7.7); NEUTROPHILS % (AUTO) 83.2 % (40.0-70.0)
[2023-07-09 13:43] LABS: PLATELET COUNT (AUTO) 126 K/uL (130-430)
[2023-07-09] MEDS: CHOLECALCIFEROL (VITAMIN D3) 5,000 UNIT TABLET PO ONE (16:01)
[2023-07-09] MEDS: INSULIN NPH 100 UNITS/ML 10 ML VIAL SUBCUT ONE (16:05)
[2023-07-09 16:56] VITALS: BP_SYST 130; PULSE 67; RESP 17; TEMP 98.5; O2SAT 100
[2023-07-09 20:00] VITALS: BP_SYST 129; PULSE 66; RESP 18; TEMP 97.8; O2SAT 100
[2023-07-09] MEDS: INSULIN GLARGINE 100 UNITS/ML, 10 ML VIAL SUBCUT SCH (21:36)
[2023-07-10] VITALS: BP_SYST 135; PULSE 68; RESP 17; TEMP 97.4; O2SAT 100
[2023-07-10 04:33] LABS: BASOPHILS % (AUTO) 0.4 % (0.0-2.0); HEMATOCRIT 25.5 % (36-48); HEMOGLOBIN 8.3 g/dL (12.0-16.0); LYMPHOCYTES # (AUTO) 0.9 K/uL (1.0-5.5); LYMPHOCYTES % (AUTO) 20.4 % (20.5-51.5); MEAN CORPUSCULAR HEMOGLOBIN 25 pg (27-31); MEAN CORPUSCULAR HGB CONC 32 % (32-36); MEAN CORPUSCULAR VOLUME 77 fL (79.0-98.0); MONOCYTES # (AUTO) 0.2 K/uL (0.0-1.0); MONOCYTES % (AUTO) 4.2 % (1.7-9.3); NEUTROPHILS # (AUTO) 3.2 K/uL (1.8-7.7); PLATELET COUNT (AUTO) 118 K/uL (130-430); RED BLOOD CELL COUNT(AUTO) 3.33 MIL/uL (4.2-6.2); RED CELL DISTRIBUTION WIDTH 23.2 % (9.0-15.0); WHITE BLOOD COUNT (AUTO) 4.3 K/uL (4.8-10.8)
[2023-07-10 04:57] LABS: ALBUMIN 1.5 g/dL (3.4-4.8); CALCIUM 7.6 mg/dL (8.4-11.0); CREATININE 1.26 mg/dL (0.55-1.30); PHOSPHORUS 2.2 mg/dL (2.7-4.5); POTASSIUM 4.3 mmol/L (3.5-5.1); TOTAL BILIRUBIN 0.7 mg/dL (0.0-1.0); TOTAL PROTEIN, SERUM 4.7 g/dL (6.4-8.3)
[2023-07-10 08:00] VITALS: BP_SYST 148; PULSE 77; RESP 17; TEMP 97.8; O2SAT 100
[2023-07-10] MEDS: CHOLECALCIFEROL (VITAMIN D3) 5,000 UNIT TABLET PO SCH (10:00)
[2023-07-10] MEDS: MAGNESIUM OXIDE 400 MG TABLET PO SCH (10:01)
[2023-07-10 12:00] VITALS: BP_SYST 135; PULSE 79; RESP 18; TEMP 98; O2SAT 96
[2023-07-10] MEDS ORDERED: ALPR0.25 PO (13:58)
[2023-07-10] MEDS ORDERED: CHOL500013 PO (13:58)
[2023-07-10] MEDS ORDERED: PRED20TA PO (13:58)
[2023-07-10] MEDS ORDERED: FOLI-43 PO (13:58)
[2023-07-10] MEDS ORDERED: INSU100V SUBCUT (13:58)
[2023-07-10] MEDS ORDERED: PRO40 PO (13:58)
[2023-07-10] MEDS ORDERED: SUCR1ORA4 GT (13:58)
[2023-07-10] MEDS ORDERED: GLIP10TA11 PO (13:58)
[2023-07-10] MEDS ORDERED: INSU100V9 SUBCUT (13:58)
[2023-07-10 19:57] VITALS: BP_SYST 131; PULSE 71; RESP 18; TEMP 97.4; O2SAT 100
[2023-07-10 20:00] VITALS: BP_SYST 131; PULSE 71; RESP 18; TEMP 97.4; O2SAT 100
[2023-07-10] MEDS ORDERED: INSULIN GLARGINE 100 UNITS/ML, 10 ML VIAL SUBCUT SCH (21:00)
== END 2023-07-10 20:25 | disposition home health service (06) | DRG 682 ==
LOC: SED 11:00 → STU 13:12 → SMU 06-29 11:10 → STU 07-03 00:20 → SMU 07-04 18:55
PROVIDERS: ADMIT Preventive Medicine Preventive Medicine/Occupational Environmental Medicine; ATTEND Specialist
PROC: 0W993ZZ Drainage of Right Pleural Cavity, Percutaneous Approach (ICD-10-PCS; 2023-06-27)
PROC: 30233N1 Transfusion of Nonautologous Red Blood Cells into Peripheral Vein, Percutaneous Approach (ICD-10-PCS; principal; 2023-06-29)
PROC: 0W9930Z Drainage of Right Pleural Cavity with Drainage Device, Percutaneous Approach (ICD-10-PCS; 2023-06-30)
PROC: 0TB03ZX Excision of Right Kidney, Percutaneous Approach, Diagnostic (ICD-10-PCS; 2023-07-04)
PROC: BT41ZZZ Ultrasonography of Right Kidney (ICD-10-PCS; 2023-07-04)
DX: N17.0 Acute kidney failure with tubular necrosis (principal); E43 Unspecified severe protein-calorie malnutrition; J18.9 Pneumonia, unspecified organism; J90 Pleural effusion, not elsewhere classified; D61.818 Other pancytopenia; M32.9 Systemic lupus erythematosus, unspecified; Z20.822 Contact with and (suspected) exposure to COVID-19; E83.51 Hypocalcemia; E83.42 Hypomagnesemia; E83.39 Other disorders of phosphorus metabolism; E88.09 Other disorders of plasma-protein metabolism, not elsewhere classified; E11.65 Type 2 diabetes mellitus with hyperglycemia; A53.0 Latent syphilis, unspecified as early or late; E66.9 Obesity, unspecified; Z79.899 Other long term (current) drug therapy; Z68.34 Body mass index [BMI] 34.0-34.9, adult
CPT/HCPCS: 32555; 36415; 71045; 71250-TC; 76604; 76770; 76942; 77012; 78579; 78580; 80048; 80053; 80307; 81000; 81001; 81015; 82042; 82570; 82947; 82948; 83010; 83037; 83540; 83550; 83605; 83615; 83735; 83880; 84100; 84157; 84302; 84484; 84703; 85018; 85025; 85044; 85379; 85610; 85651; 85730; 86162; 86431; 86780; 86886; 86900; 86901; 86920; 87040; 87070; 87086; 88300; 89051; 89060; 93005; 93306; 94070; 94640; 94760; 99285; A9539; A9540; C9113; G0378; J1815; J2001; J2060; J2250; J2543; J2930; J3010; J3490; J7050; J7060; J7512; P9021; Q5106